=== PATIENT | female | born 2000 | race Caucasian/White ===

== ENCOUNTER 2024-05-12 21:46 | Emergency (ER) | payer OTHER ==
[2024-05-12 21:55] VITALS: BP 113/57; PULSE 97; RESP 20; TEMP 98.8; BMI 31.1
[2024-05-12] MEDS: ACETAMINOPHEN 325 MG TABLET (FP) PO ONE (22:50)
[2024-05-12] MEDS ORDERED: ACETAMINOPHEN 325 MG TABLET (FP) ONE (22:50)
== END 2024-05-12 23:43 | disposition home or self-care (01) ==
LOC: JERFT 21:46 → JER 21:46 → JERFT 23:43
DX: O9A.212 Injury, poisoning and certain other consequences of external causes complicating pregnancy, second trimester (principal); S93.402A Sprain of unspecified ligament of left ankle, initial encounter; Z3A.18 18 weeks gestation of pregnancy; X50.1XXA Overexertion from prolonged static or awkward postures, initial encounter; Y93.01 Activity, walking, marching and hiking
CPT/HCPCS: 73610-TC-LT-FY; 73630-TC-LT; 99283-25